=== PATIENT | male | born 1985 | race African-American/Black ===

== ENCOUNTER 2019-05-25 12:10 | Emergency (ER) | payer MEDICARE ==
[~2019-05-25] VITALS: Ht 170.2 cm; Wt 81.6 kg
[2019-05-25 13:38] LABS: BASO % 1 % (0-3); EOS % 0 % (0-3); HEMATOCRIT 45.9 % (39.0-53.0); HEMOGLOBIN 15.4 g/dL (13.0-17.5); LYMPH # 1.3 x10^3/uL (1.0-4.8); LYMPH % 19 % (24-48); MEAN CORPUSCULAR HEMOGLOBIN 24 pg (25-35); MEAN CORPUSCULAR HGB CONC 33 g/dL (31-37); MEAN CORPUSCULAR VOLUME 73 fL (79-100); MONO # 0.7 x10^3/uL (0.0-1.1); MONO % 10 % (0-9); NEUT # 4.9 x10^3/uL (1.8-7.7); NEUT % 71 % (31-73); PLATELET COUNT 303 x10^3/uL (140-400); RED BLOOD COUNT 6.31 x10^6/uL (4.30-5.70)
[2019-05-25 13:41] LABS: BILIRUBIN,URINE SMALL (NEG); CLARITY,URINE CLEAR; COLOR,URINE AMBER; NITRITE,URINE NEGATIVE (NEG); PROTEIN,URINE 30 mg/dL (NEG-TRACE)
[2019-05-25] MEDS: ONDANSETRON PF 4 MG/2 ML VIAL. IM ONE (13:42)
[2019-05-25] MEDS: IV NORMAL SALINE 1000ML BAG 1,000 ML IV SCH (13:42)
[2019-05-25] MEDS: ONDANSETRON PF 4 MG/2 ML VIAL. IV ONE (13:44)
[2019-05-25 13:46] LABS: BARBITURATES NEG (NEG); BENZODIAZEPINES NEG (NEG); CANNABINOIDS POS (NEG); COCAINE NEG (NEG); METHADONE NEG (NEG); OPIATES NEG (NEG); PHENCYCLIDINE NEG (NEG)
[2019-05-25 13:47] LABS: AMPHETAMINE/METHAMPHETAMINE NEG (NEG)
[2019-05-25 13:47] LABS: CALCIUM 9.6 mg/dL (8.5-10.1); CREATININE 1.2 mg/dL (0.7-1.3); GFR 84.4; POTASSIUM 3.3 mmol/L (3.5-5.1)
[2019-05-25 13:48] LABS: BACTERIA,URINE 0 /HPF (0-FEW); RBC,URINE 0 /HPF (0-2); WBC,URINE OCC /HPF (0-4)
[2019-05-25 13:52] LABS: ALBUMIN 4.6 g/dL (3.4-5.0); ALBUMIN/GLOBULIN RATIO 1.1 (1.0-1.7); TOTAL BILIRUBIN 1.6 mg/dL (0.2-1.0); TOTAL PROTEIN 8.8 g/dL (6.4-8.2)
[2019-05-25] MEDS: fentaNYL PF VIAL 100 MCG/2 ML VIAL IV ONE ×2 (14:00→15:31)
[2019-05-25] MEDS: IOHEXOL 300 MG/ML 100ML VIAL. IV ONE (14:20)
[2019-05-25] MEDS ORDERED: CONTRAST GIVEN. MC PRN (14:30)
--- NOTE | 2019-05-25 15:01 | RAD ---
Examination: CT ABD PELV W/ IV CONTRST ONLY History: Abdominal pain Comparison/Correlation: None Findings: Axial images of the abdomen and pelvis were obtained following IV contrast. Sagittal and coronal reformatted images were provided. Visualized lung bases are clear. Small hiatal hernia is present. Liver, spleen, pancreas, adrenal glands, and kidneys are unremarkable. Gallbladder fossa is unremarkable. There is no bowel obstruction. Diverticulosis of the colon is minimal. Appendix is normal. No enlarged abdominal or pelvic lymph nodes. Urinary bladder is unremarkable. Right femoral intramedullary talat is partially seen. Impression: Small hiatal hernia. Minimal diverticulosis of the colon. No acute inflammatory process or suspicious mass lesion. PQRS Compliance Statement: One or more of the following individualized dose reduction techniques were utilized for this examination: 1. Automated exposure control 2. Adjustment of the mA and/or kV according to patient size 3. Use of iterative reconstruction technique Electronically signed by: Brayden Jules MD (05/25/2019 2:58 PM) [facility]
--- NOTE | 2019-05-25 15:15 | PHYS DOC ---
Past Medical History Past Medical History: Asthma Past Surgical History: No Surgical History Additional Information: 09/15 PK Alcohol Use: None Drug Use: None Adult General Chief Complaint Chief Complaint: NAUSEA/VOMITING/DIARRHA HPI HPI Patient is a 34 year old Male who presents with started vomiting on Thursday and has nothing to eat for the last 3 days. Patient states he hasn't had a bowel movement since Thursday. Patient states is normal for him. Patient states his abdomen is starting all over. He rates his pain a 10 out 10. His only history is asthma. Patient states he has not taken any medications to help his symptoms. Review of Systems Review of Systems Constitutional: Denies fever or chills [] GI: abdominal pain, nausea, vomiting, denies bloody stools or diarrhea [] All other systems were reviewed and found to be within normal limits, except as documented in this note. Current Medications Current Medications Current Medications Medications (Trade) Dose Ordered Sig/Haylie Start Time Stop Time Status Last Admin Dose Admin Famotidine (Pepcid Vial) 20 mg 1X ONCE 05/25/19 15:30 05/25/19 15:31 DC 05/25/19 15:31 20 MG Fentanyl Citrate (Fentanyl 2ml Vial) 50 mcg 1X ONCE 05/25/19 15:30 05/25/19 15:31 DC 05/25/19 15:31 50 MCG Info (CONTRAST GIVEN -- Rx MONITORING) 1 each PRN DAILY PRN 05/25/19 14:30 05/27/19 14:29 Iohexol (Omnipaque 300 Mg/ml) 75 ml 1X ONCE 05/25/19 14:15 05/25/19 14:18 DC 05/25/19 14:20 75 ML Ondansetron HCl (Zofran) 4 mg 1X ONCE 05/25/19 13:45 05/25/19 13:49 DC 05/25/19 13:44 4 MG Potassium Chloride (Klor-Con) 20 meq 1X ONCE 05/25/19 15:30 05/25/19 15:31 DC 05/25/19 15:39 20 MEQ Prochlorperazine Edisylate (Compazine) 10 mg 1X ONCE 05/25/19 15:30 05/25/19 15:31 DC 05/25/19 15:31 10 MG Sodium Chloride 1,000 ml @ 1,000 mls/hr 1X ONCE 05/25/19 15:30 05/25/19 16:29 05/25/19 15:39 1,000 MLS/HR Allergies Allergies Allergies Coded Allergies Type Severity Reaction Last Updated Verified No Known Drug Allergies 05/25/19 No Physical Exam Physical Exam Constitutional: Well developed, well nourished, no acute distress, non-toxic a ppearance. [] Cardiovascular:Heart rate regular rhythm, no murmur [] Lungs & Thorax: Bilateral breath sounds clear to auscultation [] Abdomen: Bowel sounds normal, soft, generalized tenderness, no masses, no pulsatile masses. [] Skin: Warm, dry, no erythema, no rash. [] Back: No tenderness, no CVA tenderness. [] Neurologic: Alert and oriented X 3, normal motor function, normal sensory function, no focal deficits noted. [] Psychologic: Affect normal, judgement normal, mood normal. [] Current Patient Data Vital Signs Vital Signs Date Time Temp Pulse Resp B/P (MAP) Pulse Ox O2 Delivery O2 Flow Rate FiO2 05/25/19 15:31 16 05/25/19 13:03 98.6 57 169/100 (123) 100 Room Air 98.6 Lab Values Laboratory Tests Test 05/25/19 13:15 05/25/19 13:20 Urine Collection Type Unknown Urine Color Marylu Urine Clarity Clear Urine pH 6.0 Urine Specific [place] >=1.030 Urine Protein 30 mg/dL (NEG-TRACE) Urine Glucose (UA) Negative mg/dL (NEG) Urine Ketones (Stick) >=80 mg/dL (NEG) Urine Blood Negative (NEG) Urine Nitrite Negative (NEG) Urine Bilirubin Small (NEG) Urine Urobilinogen Dipstick 1.0 mg/dL (0.2 mg/dL) Urine Leukocyte Esterase Negative (NEG) Urine RBC 0 /HPF (0-2) Urine WBC Occ /HPF (0-4) Urine Bacteria 0 /HPF (0-FEW) Urine Mucus Marked /LPF Urine Opiates Screen Neg (NEG) Urine Methadone Screen Neg (NEG) Urine Barbiturates Neg (NEG) Urine Phencyclidine Screen Neg (NEG) Urine Amphetamine/Methamphetamine Neg (NEG) Urine Benzodiazepines Screen Neg (NEG) Urine Cocaine Screen Neg (NEG) Urine Cannabinoids Screen Pos (NEG) Urine Ethyl Alcohol Neg (NEG) White Blood Count 7.0 x10^3/uL (4.0-11.0) Red Blood Count 6.31 x10^6/uL (4.30-5.70) H Hemoglobin 15.4 g/dL (13.0-17.5) Hematocrit 45.9 % (39.0-53.0) Mean Corpuscular Volume 73 fL (79-100) L Mean Corpuscular Hemoglobin 24 pg (25-35) L Mean Corpuscular Hemoglobin Concent 33 g/dL (31-37) Red Cell Distribution Width 14.0 % (11.5-14.5) Platelet Count 303 x10^3/uL (140-400) Neutrophils (%) (Auto) 71 % (31-73) Lymphocytes (%) (Auto) 19 % (24-48) L Monocytes (%) (Auto) 10 % (0-9) H Eosinophils (%) (Auto) 0 % (0-3) Basophils (%) (Auto) 1 % (0-3) Neutrophils # (Auto) 4.9 x10^3/uL (1.8-7.7) Lymphocytes # (Auto) 1.3 x10^3/uL (1.0-4.8) Monocytes # (Auto) 0.7 x10^3/uL (0.0-1.1) Eosinophils # (Auto) 0.0 x10^3/uL (0.0-0.7) Basophils # (Auto) 0.0 x10^3/uL (0.0-0.2) Sodium Level 140 mmol/L (136-145) Potassium Level 3.3 mmol/L (3.5-5.1) L Chloride Level 97 mmol/L (98-107) L Carbon Dioxide Level 27 mmol/L (21-32) Anion Gap 16 (6-14) H Blood Urea Nitrogen 27 mg/dL (8-26) H Creatinine 1.2 mg/dL (0.7-1.3) Estimated GFR (Cockcroft-Gault) 84.4 BUN/Creatinine Ratio 23 (6-20) H Glucose Level 101 mg/dL (70-99) H Calcium Level 9.6 mg/dL (8.5-10.1) Total Bilirubin 1.6 mg/dL (0.2-1.0) H Aspartate Amino Transferase (AST) 20 U/L (15-37) Alanine Aminotransferase (ALT) 47 U/L (16-63) Alkaline Phosphatase 99 U/L (46-116) Total Protein 8.8 g/dL (6.4-8.2) H Albumin 4.6 g/dL (3.4-5.0) Albumin/Globulin Ratio 1.1 (1.0-1.7) Lipase 53 U/L (73-393) L Laboratory Tests 05/25/19 13:20 Laboratory Tests 05/25/19 13:20 EKG EKG [] Radiology/Procedures Radiology/Procedures [] Impressions: [facility] [address] [place] [address] IMAGING REPORT Signed PATIENT: CAR STARKS ACCOUNT: [id number] : 1985 LOCATION: ER AGE: 34 SEX: M EXAM STATUS: REG ER ORD. PHYSICIAN: ALISHA GAYLE APRN REASON: abd pain PROCEDURE: CT ABD PELV W/ IV CONTRST ONLY Examination: CT ABD PELV W/ IV CONTRST ONLY History: Abdominal pain Comparison/Correlation: None Findings: Axial images of the abdomen and pelvis were obtained following IV contrast. Sagittal and coronal reformatted images were provided. Visualized lung bases are clear. Small hiatal hernia is present. Liver, spleen, pancreas, adrenal glands, and kidneys are unremarkable. Gallbladder fossa is unremarkable. There is no bowel obstruction. Diverticulosis of the colon is minimal. Appendix is normal. No enlarged abdominal or pelvic lymph nodes. Urinary bladder is unremarkable. Right femoral intramedullary talat is partially seen. Impression: Small hiatal hernia. Minimal diverticulosis of the colon. No acute inflammatory process or suspicious mass lesion. PQRS Compliance Statement: One or more of the following individualized dose reduction techniques were utilized for this examination: 1. Automated exposure control 2. Adjustment of the mA and/or kV according to patient size 3. Use of iterative reconstruction technique Electronically signed by: Brayden Miramontes MD (05/25/2019 2:58 PM) [facility] DICTATED and SIGNED BY: BRAYDEN MIRAMONTES MD DATE: 05/25/19 6112 Course & Med Decision Making Course & Med Decision Making Patient is a 34 year old Male who presents with started vomiting on Thursday and has nothing to eat for the last 3 days. Patient states he hasn't had a bowel movement since Thursday. Patient states is normal for him. Patient states his abdomen is starting all over. He rates his pain a 10 out 10. His only history is asthma. Patient states he has not taken any medications to help his symptoms. Patient denies any blood in his vomit or his stools recently. Abdomen is soft but generalized tenderness throughout all quadrants. Patient denies shortness of breath, chest pain, numbness or tingling, fevers, dysuria. No CVA tenderness. Lungs are clear to auscultation all lobes. Vital signs are within normal limits. Speaks in clear full sentences. Alert and oriented. Skin pink warm and dry. Mucous membranes are moist. PERRLA. Ambulatory with a steady gait. Urinalysis is not infected. CT scan shows a hiatal hernia. Patient is positive for marijuana use. Patient is educated on slowly advancing his diet. Patient is educated on medications prescribed and to follow up with GI or his primary care provider. Patient is feeling better after medications are given. Dragon Disclaimer Dragon Disclaimer This electronic medical record was generated, in whole or in part, using a voice recognition dictation system. Departure Departure Impression: Primary Impression: Nausea & vomiting Additional Impression: Marijuana use Disposition: 01 HOME, SELF-CARE Condition: STABLE Referrals: NO PCP (PCP) DONNA BUSTILLOS MD Patient Instructions: Diet for Gastroesophageal Reflux Disease, Adult, Hiatal Hernia, Nausea and Vomiting Additional Instructions: Slowly increasing her diet. Drink plenty of fluids. Take medications as prescribed. Follow-up with gastrointestinal doctor. Scripts Ondansetron (ONDANSETRON ODT) 4 Mg Tab.rapdis 1 TAB PO PRN Q6-8HRS, #16 TAB Prov: ALISHA GAYLE FIBER GLASS WORKER 05/25/19 Famotidine (PEPCID) 20 Mg Tablet 20 MG PO BID, #20 TAB Prov: ALISHA GAYLE FIBER GLASS WORKER 05/25/19 Problem Qualifiers Primary Impression: Nausea & vomiting Vomiting type: unspecified Vomiting Intractability: non-intractable Qualified Codes: R11.2 - Nausea with vomiting, unspecified ALISHA GAYLE FIBER GLASS WORKER May 25, 2019 15:15
[2019-05-25] MEDS ORDERED: ONDA4TAB12 PO (15:25)
[2019-05-25] MEDS ORDERED: FAMO-63 PO (15:25)
[2019-05-25] MEDS: PROCHLORPERAZINE 10 MG/2 ML VIAL. IV ONE (15:30)
[2019-05-25] MEDS: FAMOTIDINE 20 MG/2 ML VIAL IVP ONE (15:31)
[2019-05-25 15:35] VITALS: BP 150/90
[2019-05-25] MEDS: POTASSIUM CHLORIDE 20 MEQ TABLET.ER. PO ONE (15:39)
[2019-05-25] MEDS: IV NORMAL SALINE 1000ML BAG 1,000 ML IV ONE (15:39)
== END 2019-05-25 16:33 | disposition home or self-care (01) ==
LOC: ER 12:10
DX: F12.10 Cannabis abuse, uncomplicated (principal); R11.2 Nausea with vomiting, unspecified; R10.84 Generalized abdominal pain; F17.200 Nicotine dependence, unspecified, uncomplicated; J45.909 Unspecified asthma, uncomplicated
CPT/HCPCS: 36415; 74177; 80053; 80307; 81001; 83690; 85025; 96361; 96374; 96375; 96376; 99285; J0780; J2405; J3010; J3490; J7030; Q9967

== ENCOUNTER 2019-08-26 08:33 | Emergency (ER) | payer MEDICARE ==
[~2019-08-26] VITALS: Ht 170.2 cm; Wt 84.9 kg
[~2019-08-26 08:33] MED LIST: FAMO-63 PO; ONDA4TAB12 PO
[2019-08-26 08:41] VITALS: BP 146/91
[2019-08-26] MEDS ORDERED: OSELTAMIVIR 75 MG CAPSULE PO STA (08:49)
[2019-08-26] MEDS ORDERED: OSEL75CA PO (08:55)
--- NOTE | 2019-08-26 08:55 | PHYS DOC ---
Past Medical History Past Medical History: Asthma Past Surgical History: No Surgical History Alcohol Use: None Drug Use: None Adult General Chief Complaint Chief Complaint: FLU SYMPTOM HPI HPI Patient is a 34-year-old male who presents with complaint of fever, body aches and chills that started yesterday afternoon. Patient states that his had been in here on Thursday and was diagnosed with influenza. Patient states these been running a fever at home. Patient's temperature here in the emergency room is 101.3. He denies any nausea or vomiting. He rates the body aches as moderate pain.[] Review of Systems Review of Systems Constitutional: Positive fever and chills [] HENT: Positive congestion without sore throat [] Respiratory: Positive cough without shortness of breath [] Cardiovascular: No additional information not addressed in HPI [] GI: Denies abdominal pain, nausea, vomiting, bloody stools or diarrhea [] Musculoskeletal: Positive diffuse body aches/pain [] Integument: Denies rash or skin lesions [] Allergies Allergies Allergies Coded Allergies Type Severity Reaction Last Updated Verified No Known Drug Allergies 05/25/19 No Physical Exam Physical Exam Constitutional: Well developed, well nourished, no acute distress, non-toxic appearance. [] HENT: Normocephalic, atraumatic, bilateral external ears normal, oropharynx moist, no oral exudates, nose normal. [] Cardiovascular:Heart rate regular rhythm, no murmur [] Lungs & Thorax: Bilateral breath sounds clear to auscultation [] Skin: Warm, dry, no erythema, no rash. [] EKG EKG [] Radiology/Procedures Radiology/Procedures [] Course & Med Decision Making Course & Med Decision Making Pertinent Labs and Imaging studies reviewed. (See chart for details) [] Dragon Disclaimer Dragon Disclaimer This electronic medical record was generated, in whole or in part, using a voice recognition dictation system. Departure Departure Impression: Primary Impression: Influenza Disposition: 01 HOME, SELF-CARE Condition: STABLE Referrals: NO PCP (PCP) Patient Instructions: Form - Excuse from Work, School, or Physical Activity, Influenza, Adult Scripts Oseltamivir Phosphate (TAMIFLU) 75 Mg Capsule 1 CAP PO BID, #10 CAP Prov: ARMANDO WEBER Jr. DO 08/26/19 ARMANDO WEBER Jr. DO Aug 26, 2019 08:55
[2019-08-26] MEDS ORDERED: ACETAMINOPHEN 500 MG TABLET PO ONE (09:00)
== END 2019-08-26 09:01 | disposition home or self-care (01) ==
LOC: ER 08:33
DX: J11.1 Influenza due to unidentified influenza virus with other respiratory manifestations (principal); J45.909 Unspecified asthma, uncomplicated
CPT/HCPCS: 99283

== ENCOUNTER 2019-09-18 18:20 | Emergency (ER) | payer MEDICARE ==
[~2019-09-18] VITALS: Ht 170.2 cm; Wt 83.0 kg
[~2019-09-18 18:20] MED LIST changes: +OSEL75CA PO
[2019-09-18 18:35] VITALS: BP 137/92
[2019-09-18] MEDS ORDERED: NAPR-514 PO (19:19)
[2019-09-18] MEDS ORDERED: CYCL10TA2 PO (19:19)
[2019-09-18] MEDS ORDERED: PRED50TA PO (19:19)
--- NOTE | 2019-09-18 19:20 | PHYS DOC ---
Past Medical History Past Medical History: Asthma Past Surgical History: No Surgical History Alcohol Use: None Drug Use: None Adult General Chief Complaint Chief Complaint: HEADACHE HPI HPI Patient is a 34 year old male who presents with 7/10 throbbing intermittent headache that began last night. Patient denies any exacerbation or relieving factors to his headache. Denies any nausea vomiting. He reports he was supposed to go to work today but missed work because of the head and would like a note for work for 2 days. Review of Systems Review of Systems Constitutional: Denies fever or chills [] Eyes: Denies change in visual acuity, redness, or eye pain [] HENT: Denies nasal congestion or sore throat [] Respiratory: Denies cough or shortness of breath [] Cardiovascular: No additional information not addressed in HPI [] GI: Denies abdominal pain, nausea, vomiting, bloody stools or diarrhea [] : Denies dysuria or hematuria [] Musculoskeletal: Denies back pain or joint pain [] Integument: Denies rash or skin lesions [] Neurologic: Reports headache, denies focal weakness or sensory changes [] All other systems were reviewed and found to be within normal limits, except as documented in this note. Current Medications Current Medications Current Medications Medications (Trade) Dose Ordered Sig/Haylie Start Time Stop Time Status Last Admin Dose Admin Ondansetron HCl (Zofran Odt) 4 mg 1X ONCE 09/18/19 19:00 09/18/19 19:11 DC Prednisone (Prednisone) 60 mg 1X ONCE 09/18/19 19:00 09/18/19 19:11 DC Allergies Allergies Allergies Coded Allergies Type Severity Reaction Last Updated Verified No Known Drug Allergies 05/25/19 No Physical Exam Physical Exam Constitutional: Well developed, well nourished, no acute distress, non-toxic appearance. [] HENT: Normocephalic, atraumatic, bilateral external ears normal, oropharynx moist, no oral exudates, nose normal. [] Eyes: PERRLA, EOMI, conjunctiva normal, no discharge. [] Neck: Normal range of motion, no tenderness, supple, no stridor. [] Cardiovascular:Heart rate regular rhythm, no murmur [] Lungs & Thorax: Bilateral breath sounds clear to auscultation [] Abdomen: Bowel sounds normal, soft, no tenderness, no masses, no pulsatile masses. [] Skin: Warm, dry, no erythema, no rash. [] Back: No tenderness, no CVA tenderness. [] Extremities: No tenderness, no cyanosis, no clubbing, ROM intact, no edema. [] Neurologic: Alert and oriented X 3, normal motor function, normal sensory function, no focal deficits noted. Cranial nerves II through XII intact Psychologic: Affect normal, judgement normal, mood normal. [] Current Patient Data Vital Signs Vital Signs Date Time Temp Pulse Resp B/P (MAP) Pulse Ox O2 Delivery O2 Flow Rate FiO2 09/18/19 18:35 98.6 90 12 137/92 (107) 98 Room Air 98.6 EKG EKG [] Radiology/Procedures Radiology/Procedures [] Course & Med Decision Making Course & Med Decision Making Pertinent Labs and Imaging studies reviewed. (See chart for details) This is a 34-year-old male patient presenting to the ED today with intermittent episodes of a frontal headache that began yesterday. Patient is neurologically intact. He missed work and would like a note. Note for work provided. Instructed to follow-up with his own PCP. Blood pressure was noted at 137/92, no history of hypertension, encouraged to follow up with the PCP on blood pressure monitor. Dragon Disclaimer Dragon Disclaimer This electronic medical record was generated, in whole or in part, using a voice recognition dictation system. Departure Departure Impression: Primary Impression: Headache Disposition: 01 HOME, SELF-CARE Condition: STABLE Referrals: NO PCP (PCP) follow up with your doctor in 1-2 weeks Patient Instructions: Headache, FAQs Additional Instructions: You were evaluated in the emergency room for headache. Take the prescribed medicine as needed for pain. Please follow-up with your primary care doctor in the next 1-2 weeks. Off note your blood pressure was slightly up at 137/92, blood pressure is less than 120/80 please follow up with your doctor for blood pressure monitoring Scripts Cyclobenzaprine Hcl (CYCLOBENZAPRINE HCL) 10 Mg Tablet 1 TAB PO TID, #30 TAB Prov: MUTUNGA,DIOGO TURBOGENERATOR OPERATOR 09/18/20 Naproxen (NAPROXEN) 500 Mg Tablet 1 TAB PO BID for pain, #20 TAB 0 Refills Prov: MUTUNGA,DIOGO TURBOGENERATOR OPERATOR 09/18/20 Prednisone (PREDNISONE) 50 Mg Tablet 1 TAB PO DAILY, #5 TAB Prov: MUTUNGA,DIOGO TURBOGENERATOR OPERATOR 09/18/19 Problem Qualifiers Primary Impression: Headache Headache type: unspecified Headache chronicity pattern: acute headache Intractability: not intractable Qualified Codes: R51 - Headache DIOGO NEIL APRN Sep 18, 2019 19:20
[2019-09-18] MEDS: predniSONE 20 MG TABLET PO ONE (19:28)
[2019-09-18] MEDS: ONDANSETRON ODT 4 MG TAB.RAPDIS. PO ONE (19:28)
== END 2019-09-18 19:38 | disposition home or self-care (01) ==
LOC: ER 18:20
DX: R51 Headache (principal); J45.909 Unspecified asthma, uncomplicated
CPT/HCPCS: 99283; J7512; Q0162

== ENCOUNTER 2019-11-01 09:26 | Emergency (ER) | payer MEDICARE ==
[~2019-11-01] VITALS: Ht 170.2 cm; Wt 90.0 kg
[~2019-11-01 09:26] MED LIST changes: +CYCL10TA2 PO; +NAPR-514 PO; +PRED50TA PO
[2019-11-01 09:52] VITALS: BP 133/73
[2019-11-01] MEDS ORDERED: IV NORMAL SALINE 1000ML BAG 1,000 ML IV ONE (10:00)
[2019-11-01] MEDS ORDERED: FAMOTIDINE 20 MG/2 ML VIAL IVP ONE (10:00)
[2019-11-01] MEDS ORDERED: ONDANSETRON PF 4 MG/2 ML VIAL. IVP ONE (10:00)
--- NOTE | 2019-11-01 10:03 | PHYS DOC ---
Past Medical History Past Medical History: Asthma (DIOGO NEIL APRN) Past Surgical History: No Surgical History (DIOGO ENIL APRN) Smoking Status: Current Every Day Smoker Alcohol Use: None Drug Use: None (DIOGO NEIL APRN) Adult General Chief Complaint Chief Complaint: ABDOMINAL PAIN HPI HPI Patient is a 34 year old male patient who presents to the ED today complaining of 7 out of 10 abdominal pain mostly around his umbilicus that began on Thursday this week. Patient also complaining of nausea and vomiting as well as dark stools. Denies any fever. (DIOGO NEIL APRN) Review of Systems Review of Systems Constitutional: Denies fever or chills [] Eyes: Denies change in visual acuity, redness, or eye pain [] HENT: Denies nasal congestion or sore throat [] Respiratory: Denies cough or shortness of breath [] Cardiovascular: No additional information not addressed in HPI [] GI: Reports abdominal pain, nausea vomiting, denies bloody stools or diarrhea [] : Denies dysuria or hematuria [] Musculoskeletal: Denies back pain or joint pain [] Integument: Denies rash or skin lesions [] Neurologic: Denies headache, focal weakness or sensory changes [] All other systems were reviewed and found to be within normal limits, except as documented in this note. (DIOGO NEIL APRN) Current Medications Current Medications Current Medications Medications (Trade) Dose Ordered Sig/Haylie Start Time Stop Time Status Last Admin Dose Admin Famotidine (Pepcid Vial) 20 mg 1X ONCE 11/01/19 10:00 11/01/19 10:02 DC Ondansetron HCl (Zofran) 4 mg 1X ONCE 11/01/19 10:00 11/01/19 10:02 DC Sodium Chloride 1,000 ml @ 1,000 mls/hr 1X ONCE 11/01/19 10:00 11/01/19 10:13 DC (MARTHA MCNULTY DO) Allergies Allergies Allergies Coded Allergies Type Severity Reaction Last Updated Verified No Known Drug Allergies 05/25/19 No (MARTHA MCNULTY DO) Physical Exam Physical Exam Constitutional: Well developed, well nourished, no acute distress, non-toxic appearance. [] HENT: Normocephalic, atraumatic, bilateral external ears normal, oropharynx moist, no oral exudates, nose normal. [] Eyes: PERRLA, EOMI, conjunctiva normal, no discharge. [] Neck: Normal range of motion, no tenderness, supple, no stridor. [] Cardiovascular:Heart rate regular rhythm, no murmur [] Lungs & Thorax: Bilateral breath sounds clear to auscultation [] Abdomen: Bowel sounds normal, soft, diffuse tenderness, negative Atkins sign, negative psoas and obturator signs, no masses, no pulsatile masses. [] Skin: Warm, dry, no erythema, no rash. [] Back: No tenderness, no CVA tenderness. [] Extremities: No tenderness, no cyanosis, no clubbing, ROM intact, no edema. [] Neurologic: Alert and oriented X 3, normal motor function, normal sensory function, no focal deficits noted. [] Psychologic: Affect normal, judgement normal, mood normal. [] (DIOGO NEIL APRN) Current Patient Data Vital Signs Vital Signs Date Time Temp Pulse Resp B/P (MAP) Pulse Ox O2 Delivery O2 Flow Rate FiO2 11/01/19 09:52 98.6 77 16 133/73 (93) 97 Room Air 98.6 (MARTHA MCNULTY DO) EKG EKG [] (DIOGO NEIL APRN) Radiology/Procedures Radiology/Procedures [] (DIOGO NEIL APRN) Course & Med Decision Making Course & Med Decision Making Pertinent Labs and Imaging studies reviewed. (See chart for details) This is a 34-year-old male patient presenting to the ED today with nausea vomiting abdominal pain and dark stool symptoms since Thursday. 1008 patient eloped from the Ed. (DIOGO NEIL APRN) Dragon Disclaimer Dragon Disclaimer This electronic medical record was generated, in whole or in part, using a voice recognition dictation system. (DIOGO NEIL APRN) Departure Departure Impression: Primary Impression: Nausea & vomiting Additional Impression: Abdominal pain Disposition: AGAINST MEDICAL ADVICE Condition: STABLE Referrals: NO PCP (PCP) Attending Signature Attending Signature I have reviewed the PA/SENIOR INFORMATION SYSTEMS ARCHITECT's note and plan of care. I was available for consultation as needed during the patient's visit in the emergency department. I agree with the clinical impression, plan, and disposition. (MARTHA MCNULTY DO) Problem Qualifiers Primary Impression: Nausea & vomiting Vomiting type: unspecified Vomiting Intractability: non-intractable Qualified Codes: R11.2 - Nausea with vomiting, unspecified Additional Impression: Abdominal pain Abdominal location: generalized Qualified Codes: R10.84 - Generalized abdominal pain DIOGO NEIL APRN Nov 01, 2019 10:03 MARTHA MCNULTY DO Nov 02, 2019 21:33
== END 2019-11-01 10:07 | disposition left against medical advice (07) ==
LOC: ER 09:26
DX: R11.2 Nausea with vomiting, unspecified (principal); R10.84 Generalized abdominal pain; J45.909 Unspecified asthma, uncomplicated; F17.200 Nicotine dependence, unspecified, uncomplicated
CPT/HCPCS: 99283

== ENCOUNTER 2020-04-27 08:30 | Observation (INO) | payer MEDICARE ==
[~2020-04-27] VITALS: Ht 170.2 cm; Wt 82.0 kg
[2020-04-27 08:50] LABS: BILIRUBIN,URINE SMALL (NEG); CLARITY,URINE CLOUDY; COLOR,URINE AMBER; NITRITE,URINE NEGATIVE (NEG); PH,URINE 6.5 (<5.0-8.0); PROTEIN,URINE 30 mg/dL (NEG-TRACE); UROBILINOGEN,URINE 0.2 mg/dL (0.2 mg/dL)
[2020-04-27 09:05] LABS: BACTERIA,URINE FEW /HPF (0-FEW); RBC,URINE 0 /HPF (0-2)
--- NOTE | 2020-04-27 09:05 | PHYS DOC ---
Past Medical History Past Medical History: Asthma, Other Additional Past Medical Histor: HERNIA Past Surgical History: No Surgical History Smoking Status: Current Every Day Smoker Alcohol Use: Occasionally Drug Use: None General Adult EDM: Chief Complaint: NAUSEA/VOMITING/DIARRHA HPI: HPI: Patient is a 35-year-old male who presents to the emergency room complaining of abdominal pain, nausea, vomiting. History is very limited from the patient as he is agitated. He states that he started feeling bad yesterday morning. He states he is unable to keep anything down. Is never had anything like this previously. He states he is thirsty but not hungry. He is never had surgery on his abdomen before. He denies any diarrhea, fever, chills, sweats, trauma, chest pain, shortness of breath. Review of Systems: Review of Systems: General: Denies fever, chills, sweats, fatigue Eyes: Denies drainage, blurred vision, eye redness HENT: Denies rhinorrhea, sore throat, earache Respiratory: Denies cough, shortness of breath, wheezing Cardiac: Denies edema, palpitations, chest pain GI: Reports nausea, vomiting, abdominal pain MSK: Denies neck pain, back pain Skin: Denies rash, jaundice Neuro: Denies headache, dizziness Psychiatric: Denies SI/HI Heart Score: Risk Factors: Risk Factors: DM, Current or recent (<one month) smoker, HTN, HLP, family history of CAD, obesity. Risk Scores: Score 0 - 3: 2.5% MACE over next 6 weeks - Discharge Home Score 4 - 6: 20.3% MACE over next 6 weeks - Admit for Clinical Observation Score 7 - 10: 72.7% MACE over next 6 weeks - Early Invasive Strategies Allergies: Allergies: Allergies Coded Allergies Type Severity Reaction Last Updated Verified No Known Drug Allergies 05/25/19 No Physical Exam: PE: General: Awake, alert, NAD. Well Nourished, well hydrated. Cooperative HEENT: Atraumatic, EOMI, PERRL, airway patent, moist oral mucosa Neck: Supple, trachea midline Respiratory: CTA bilaterally, normal effort, no wheezing/crackles CV: RRR, no murmur, cap refill <2 GI: Soft, diffuse tenderness, nondistended MSK: No obvious deformities Skin: Warm, dry, intact Neuro: A&O x3, speech NL, sensory and motor grossly intact, no focal deficits Psych: Agitated, not suicidal or homicidal Current Patient Data: Vital Signs: Vital Signs Date Time Temp Pulse Resp B/P (MAP) Pulse Ox O2 Delivery O2 Flow Rate FiO2 04/27/20 08:37 98.3 52 16 161/94 (116) 100 Room Air 98.3 EKG: EKG: [] Radiology/Procedures: Radiology/Procedures: [] Course & Med Decision Making: Course & Med Decision Making Pertinent Labs and Imaging studies reviewed. (See chart for details) Patient is a 35-year-old male who presents to the emergency room complaining of abdominal pain with vomiting for the last 36 hours. History and exam are limited due to patient's agitation and uncooperativeness. He is upset about not being able to eat or drink anything here in the emergency room. We will keep him n.p.o. at this time in case he has a surgical abdomen. Abdominal work-up was ordered including CBC, BMP, LFTs, lipase, UA, CT abdomen pelvis. Differential diagnosis includes appendicitis, colitis, cyclic vomiting, gastroenteritis, bowel obstruction. CT shows small bowel obstruction with possible closed loop obstruction. I have discussed this with the surgeon Dr. Machado. NG was placed. Work up was reviewed and was remarkable for small bowel obstruction. At this time, patient would benefit from further work up and management. Patient is not stable for discharge at this time. Results, vitals, interventions, and plan was discussed with the patient. Patient was given opportunity to ask any questions and are in agreement with plan for admission. Patient was discussed with admitting physician and bridge admission orders were placed. Further care will be managed by inpatient team. Zeny Disclaimer: Dragon Disclaimer: This electronic medical record was generated, in whole or in part, using a voice recognition dictation system. Departure Departure Impression: Primary Impression: Small bowel obstruction Additional Impression: Marijuana use Disposition: ADMITTED INPATIENT Condition: IMPROVED Referrals: NO PCP (PCP) Justicifation of Admission Dx: Justifications for Admission: Justification of Admission Dx: Yes BERNIE ELLER MD Apr 27, 2020 09:05
[2020-04-27] MEDS ORDERED: CONTRAST GIVEN. MC PRN (09:15)
[2020-04-27] MEDS ORDERED: IOHEXOL 240 MG/ML 50ML VIAL. PO ONE (09:15)
[2020-04-27] MEDS ORDERED: IOHEXOL 300 MG/ML 100ML VIAL. IV ONE (09:15)
[2020-04-27] MEDS ORDERED: ONDANSETRON PF 4 MG/2 ML VIAL. IVP ONE ×2 (09:15→10:15)
[2020-04-27 09:16] LABS: BASO # 0.1 x10^3/uL (0.0-0.2); BASO % 1 % (0-3); EOS % 0 % (0-3); HEMOGLOBIN 13.9 g/dL (13.0-17.5); LYMPH # 1.4 x10^3/uL (1.0-4.8); LYMPH % 17 % (24-48); MEAN CORPUSCULAR HEMOGLOBIN 24 pg (25-35); MEAN CORPUSCULAR HGB CONC 33 g/dL (31-37); MEAN CORPUSCULAR VOLUME 74 fL (79-100); MONO # 0.6 x10^3/uL (0.0-1.1); MONO % 8 % (0-9); NEUT # 6.3 x10^3/uL (1.8-7.7); NEUT % 75 % (31-73); PLATELET COUNT 309 x10^3/uL (140-400); RED CELL DISTRIBUTION WIDTH 14.5 % (11.5-14.5); WHITE BLOOD COUNT 8.4 x10^3/uL (4.0-11.0)
[2020-04-27 09:26] LABS: CALCIUM 9.3 mg/dL (8.5-10.1); GFR 103.5; POTASSIUM 3.5 mmol/L (3.5-5.1)
[2020-04-27 09:31] LABS: ALBUMIN 4.1 g/dL (3.4-5.0); TOTAL BILIRUBIN 1.4 mg/dL (0.2-1.0); TOTAL PROTEIN 8.1 g/dL (6.4-8.2)
[2020-04-27] MEDS ORDERED: IV NORMAL SALINE 1000ML BAG 1,000 ML IV ONE (10:15)
[2020-04-27] MEDS ORDERED: FAMOTIDINE 20 MG/2 ML VIAL IVP ONE (10:45)
--- NOTE | 2020-04-27 10:59 | RAD ---
EXAM: CT Abdomen and Pelvis with IV contrast INDICATION: Reason: abd pain, N/V / Spl. Instructions: OMNI 300 INJ 75 MLS OMNI 240 30 MLS / History: TECHNIQUE: Multi-detector row CT images were acquired from the lung bases through the abdomen and pelvis with the use of IV contrast. Sagittal and coronal images were acquired from the transaxial data. All CT scans performed at this facility utilize dose optimization techniques as appropriate to the exam, including the following: Automated exposure control and adjustment of the mA and/or KV according to patient size (this includes techniques or standardized protocols for targeted exams where dose is indication/reason for exam). IV CONTRAST: Administered ORAL CONTRAST: Administered COMPARISON: Abdomen pelvis CT with IV contrast 05/25/2019 FINDINGS: LOWER CHEST: Small hiatal hernia LIVER: Unremarkable BILIARY SYSTEM: Gallbladder is unremarkable. Bile ducts are not dilated. PANCREAS: Unremarkable SPLEEN: Unremarkable ADRENALS: Unremarkable KIDNEYS & URETERS: Unremarkable BLADDER: Unremarkable REPRODUCTIVE ORGANS: Unremarkable GASTROINTESTINAL: Stomach is unremarkable besides a small hiatal hernia. Small bowel is only partially opacified by enteric contrast. In the mid upper abdomen, an opacified small bowel loop is narrowed and appears to continue across the mesentery into unopacified small bowel loops, some of which more distally are mildly distended . The terminal ileum is normal in caliber. The large bowel shows diffuse spasm. There are scattered colonic diverticuli most conspicuous at the ascending colon and cecum. MESENTERY/PERITONEUM/RETROPERITONEUM: Unremarkable VASCULAR: Unremarkable LYMPH NODES: No adenopathy OSSEOUS & SOFT TISSUES: Unremarkable IMPRESSION: 1. Findings suggest a small bowel obstruction. Given the distention of nonopacified small bowel loops and collapse of more distal small bowel loops, closed loop obstruction physiology is difficult to exclude. No mesenteric edema or other secondary findings suspicious for bowel ischemia. 2. Incidental ascending colonic diverticulosis without CT findings of acute diverticulitis, and diffuse colonic spasm without overt signs of colitis. Discussed with Dr. Jayda Urbina by telephone at 10:54 AM on 04/27/2020 Electronically signed by: Raymundo Wood MD (04/27/2020 10:56 AM) [id number]
[2020-04-27] MEDS ORDERED: LIDOCAINE 2% VISCOUS 15 ML SOLUTION. MM ONE (11:00)
[2020-04-27] MEDS ORDERED: MORPHINE SULFATE 10 MG/ML VIAL. IV ONE ×2 (11:00→12:15)
--- NOTE | 2020-04-27 12:02 | RAD ---
KUB, KUB, KUB History: Reason: NG placement / Spl. Instructions: / History: Technique: 3 views of the abdomen obtained during enteric tube placement. Comparison: CT April 27, 2020 Findings: Initial radiograph of the abdomen demonstrates enteric tube within the midesophagus. Second image demonstrates enteric tube with tip projecting over the proximal stomach and side port in the distal esophagus. Final image demonstrates enteric tube with tip beyond the image in the distal stomach. No consolidation or pleural effusion. No pneumothorax. Contrast noted within the renal collecting system from recent CT. Oral contrast noted within partially imaged mid small bowel loops. Impression: 1. Serial images obtained during enteric tube placement with final positioning of enteric tube in the region of the distal stomach. Electronically signed by: Chester Vaca DO (04/27/2020 11:59 AM) [id number]
--- NOTE | 2020-04-27 12:07 | PDOC1 ---
History and Physical Date of Admission Date of Admission DATE: 04/27/20 TIME: 12:03 Identification/Chief Complaint Chief Complaint SEEN IN ER WITH PSBO presented to the emergency room complaining of abdominal pain, nausea, vomiting. He states that he started feeling bad yesterday morning. He states he is unable to keep anything down. Is never had anything like this previously. He denies any diarrhea, fever, chills, sweats, trauma, chest pain, shortness of breath. ADMITTED , MADE NPO Past Medical History Past Medical History Past Medical History Past Medical History: Asthma, Other Additional Past Medical Histor: HERNIA Past Surgical History: No Surgical History Smoking Status: Current Every Day Smoker Alcohol Use: Occasionally Drug Use: None FHX COPD, HTN Cardiovascular: HTN Pulmonary: Asthma Family History Family History: High Cholestrol, Hypertension Social History Smoke: <1 pack per day ALCOHOL: occassional Drugs: None, Marijuana Current Problem List Problem List Problems Medical Problems: (1) Marijuana use Status: Acute (2) Small bowel obstruction Status: Acute Current Medications Current Medications Current Medications Ondansetron HCl (Zofran) 4 mg 1X ONCE IVP Last administered on 04/27/20at 09:29; Start 04/27/20 at 09:15; Stop 04/27/20 at 09:16; Status DC Iohexol (Omnipaque 240 Mg/ml) 30 ml 1X ONCE PO Last administered on 04/27/20at 09:15; Start 04/27/20 at 09:15; Stop 04/27/20 at 09:16; Status DC Iohexol (Omnipaque 300 Mg/ml) 75 ml 1X ONCE IV Last administered on 04/27/20at 09:15; Start 04/27/20 at 09:15; Stop 04/27/20 at 09:16; Status DC Info (CONTRAST GIVEN -- Rx MONITORING) 1 each PRN DAILY PRN MC SEE COMMENTS; Start 04/27/20 at 09:15; Stop 04/29/20 at 09:14 Sodium Chloride 1,000 ml @ 1,000 mls/hr 1X ONCE IV Last administered on 04/27/20at 10:52; Start 04/27/20 at 10:15; Stop 04/27/20 at 11:14; Status DC Ondansetron HCl (Zofran) 4 mg 1X ONCE IVP Last administered on 04/27/20at 09:45; Start 04/27/20 at 10:15; Stop 04/27/20 at 10:18; Status DC Famotidine (Pepcid Vial) 20 mg 1X ONCE IVP Last administered on 04/27/20at 10:51; Start 04/27/20 at 10:45; Stop 04/27/20 at 10:46; Status DC Morphine Sulfate (Morphine Sulfate) 8 mg 1X ONCE IV Last administered on 04/27/20at 11:12; Start 04/27/20 at 11:00; Stop 04/27/20 at 11:02; Status DC Lidocaine HCl (Viscous Lidocaine) 15 ml 1X ONCE MM Last administered on 04/27/20at 11:11; Start 04/27/20 at 11:00; Stop 04/27/20 at 11:02; Status DC Active Scripts Active Cyclobenzaprine Hcl 10 Mg Tablet 1 Tab PO TID Naproxen 500 Mg Tablet 1 Tab PO BID Prednisone 50 Mg Tablet 1 Tab PO DAILY Tamiflu (Oseltamivir Phosphate) 75 Mg Capsule 1 Cap PO BID Ondansetron Odt (Ondansetron) 4 Mg Tab.rapdis 1 Tab PO PRN Q6-8HRS Pepcid (Famotidine) 20 Mg Tablet 20 Mg PO BID Allergies Allergies: Coded Allergies: No Known Drug Allergies (Unverified , 05/25/19) ROS Review of System Review of Systems: Review of Systems: General: Denies fever, chills, sweats, fatigue Eyes: Denies drainage, blurred vision, eye redness HENT: Denies rhinorrhea, sore throat, earache Respiratory: Denies cough, shortness of breath, wheezing Cardiac: Denies edema, palpitations, chest pain GI: Reports nausea, vomiting, abdominal pain MSK: Denies neck pain, back pain Skin: Denies rash, jaundice Neuro: Denies headache, dizziness 14 PT ROS OTHERWISE NEG General: No: Chills, Night Sweats, Fatigue, Malaise, Appetite, Other PSYCHOLOGICAL ROS: No: Anxiety, Behavioral Disorder, Concentration difficultie, Decreased libido, Depression, Disorientation, Hallucinations, Hostility, Irritablity, Memory difficulties, Mood Swings, Obsessive thoughts, Physical abuse, Sexual abuse, Sleep disturbances, Suicidal ideation, Other HEENT: No: Heacaches, Visual Changes, Hearing change, Nasal congestion, Nasal discharge, Oral lesions, Sinus pain, Sore Throat, Epistaxis, Sneezing, Snoring, Tinnitus, Vertigo, Vocal changes, Other ALLERGY AND IMMUNOLOGY: No: Hives, Insect Bite Sensitivity, Itchy/Watery Eyes, Nasal Congestion, Post Nasal Drip, Seasonal Allergies, Other Hematological and Lymphatic: No: Bleeding Problems, Blood Clots, Blood Transfusions, Brusing, Night Sweats, Pallor, Swollen Lymph Nodes, Other Respiratory: No: Cough, Hemoptysis, Orthopnea, Pleuritic Pain, Shortness of breath, SOB with excertion, Sputum Changes, Stridor, Tachypnea, Wheezing, Other Cardiovascular: No Chest Pain, No Palpitations, No Orthopnea, No Paroxysmal Noc. Dyspnea, No Edema, No Lt Headedness, No Other Gastrointestinal: Yes Nausea, Yes Vomiting Musculoskeletal: No Gait Disturbance, No Joint Pain, No Joint Stiffness, No Joint Swelling, No Muscle Pain, No Muscular Weakness, No Pain In:, No Swelling In:, No Other Neurological: No Behavorial Changes, No Bowel/Bladder ControlChng, No Confusion, No Dizziness, No Gait Disturbance, No Headaches, No Impaired Coord/balance, No Memory Loss, No Numbness/Tingling, No Seizures, No Speech Problems, No Tremors, No Visual Changes, No Weakness, No Other Vitals Vitals Vital Signs Date Time Temp Pulse Resp B/P (MAP) Pulse Ox O2 Delivery O2 Flow Rate FiO2 04/27/20 11:12 20 100 Room Air 04/27/20 10:34 46 169/97 (121) 04/27/20 08:37 98.3 98.3 Labs Labs Laboratory Tests Test 04/27/20 08:37 04/27/20 09:03 Urine Collection Type Void Urine Color Marylu Urine Clarity Cloudy Urine pH 6.5 (<5.0-8.0) Urine Specific [place] >=1.030 (1.000-1.030) Urine Protein 30 mg/dL (NEG-TRACE) Urine Glucose (UA) Negative mg/dL (NEG) Urine Ketones (Stick) 40 mg/dL (NEG) Urine Blood Negative (NEG) Urine Nitrite Negative (NEG) Urine Bilirubin Small (NEG) Urine Urobilinogen Dipstick 0.2 mg/dL (0.2 mg/dL) Urine Leukocyte Esterase Small (NEG) Urine RBC 0 /HPF (0-2) Urine WBC 11-20 /HPF (0-4) Urine Bacteria Few /HPF (0-FEW) Urine Mucus Marked /LPF White Blood Count 8.4 x10^3/uL (4.0-11.0) Red Blood Count 5.70 x10^6/uL (4.30-5.70) Hemoglobin 13.9 g/dL (13.0-17.5) Hematocrit 42.0 % (39.0-53.0) Mean Corpuscular Volume 74 fL (79-100) Mean Corpuscular Hemoglobin 24 pg (25-35) Mean Corpuscular Hemoglobin Concent 33 g/dL (31-37) Red Cell Distribution Width 14.5 % (11.5-14.5) Platelet Count 309 x10^3/uL (140-400) Neutrophils (%) (Auto) 75 % (31-73) Lymphocytes (%) (Auto) 17 % (24-48) Monocytes (%) (Auto) 8 % (0-9) Eosinophils (%) (Auto) 0 % (0-3) Basophils (%) (Auto) 1 % (0-3) Neutrophils # (Auto) 6.3 x10^3/uL (1.8-7.7) Lymphocytes # (Auto) 1.4 x10^3/uL (1.0-4.8) Monocytes # (Auto) 0.6 x10^3/uL (0.0-1.1) Eosinophils # (Auto) 0.0 x10^3/uL (0.0-0.7) Basophils # (Auto) 0.1 x10^3/uL (0.0-0.2) Sodium Level 138 mmol/L (136-145) Potassium Level 3.5 mmol/L (3.5-5.1) Chloride Level 99 mmol/L (98-107) Carbon Dioxide Level 25 mmol/L (21-32) Anion Gap 14 (6-14) Blood Urea Nitrogen 22 mg/dL (8-26) Creatinine 1.0 mg/dL (0.7-1.3) Estimated GFR (Cockcroft-Gault) 103.5 BUN/Creatinine Ratio 22 (6-20) Glucose Level 128 mg/dL (70-99) Calcium Level 9.3 mg/dL (8.5-10.1) Total Bilirubin 1.4 mg/dL (0.2-1.0) Aspartate Amino Transf (AST/SGOT) 19 U/L (15-37) Alanine Aminotransferase (ALT/SGPT) 46 U/L (16-63) Alkaline Phosphatase 92 U/L (46-116) Total Protein 8.1 g/dL (6.4-8.2) Albumin 4.1 g/dL (3.4-5.0) Albumin/Globulin Ratio 1.0 (1.0-1.7) Lipase 76 U/L (73-393) Laboratory Tests Test 04/27/20 08:37 04/27/20 09:03 Urine Collection Type Void Urine Color Marylu Urine Clarity Cloudy Urine pH 6.5 (<5.0-8.0) Urine Specific [place] >=1.030 (1.000-1.030) Urine Protein 30 mg/dL (NEG-TRACE) Urine Glucose (UA) Negative mg/dL (NEG) Urine Ketones (Stick) 40 mg/dL (NEG) Urine Blood Negative (NEG) Urine Nitrite Negative (NEG) Urine Bilirubin Small (NEG) Urine Urobilinogen Dipstick 0.2 mg/dL (0.2 mg/dL) Urine Leukocyte Esterase Small (NEG) Urine RBC 0 /HPF (0-2) Urine WBC 11-20 /HPF (0-4) Urine Bacteria Few /HPF (0-FEW) Urine Mucus Marked /LPF White Blood Count 8.4 x10^3/uL (4.0-11.0) Red Blood Count 5.70 x10^6/uL (4.30-5.70) Hemoglobin 13.9 g/dL (13.0-17.5) Hematocrit 42.0 % (39.0-53.0) Mean Corpuscular Volume 74 fL (79-100) Mean Corpuscular Hemoglobin 24 pg (25-35) Mean Corpuscular Hemoglobin Concent 33 g/dL (31-37) Red Cell Distribution Width 14.5 % (11.5-14.5) Platelet Count 309 x10^3/uL (140-400) Neutrophils (%) (Auto) 75 % (31-73) Lymphocytes (%) (Auto) 17 % (24-48) Monocytes (%) (Auto) 8 % (0-9) Eosinophils (%) (Auto) 0 % (0-3) Basophils (%) (Auto) 1 % (0-3) Neutrophils # (Auto) 6.3 x10^3/uL (1.8-7.7) Lymphocytes # (Auto) 1.4 x10^3/uL (1.0-4.8) Monocytes # (Auto) 0.6 x10^3/uL (0.0-1.1) Eosinophils # (Auto) 0.0 x10^3/uL (0.0-0.7) Basophils # (Auto) 0.1 x10^3/uL (0.0-0.2) Sodium Level 138 mmol/L (136-145) Potassium Level 3.5 mmol/L (3.5-5.1) Chloride Level 99 mmol/L (98-107) Carbon Dioxide Level 25 mmol/L (21-32) Anion Gap 14 (6-14) Blood Urea Nitrogen 22 mg/dL (8-26) Creatinine 1.0 mg/dL (0.7-1.3) Estimated GFR (Cockcroft-Gault) 103.5 BUN/Creatinine Ratio 22 (6-20) Glucose Level 128 mg/dL (70-99) Calcium Level 9.3 mg/dL (8.5-10.1) Total Bilirubin 1.4 mg/dL (0.2-1.0) Aspartate Amino Transf (AST/SGOT) 19 U/L (15-37) Alanine Aminotransferase (ALT/SGPT) 46 U/L (16-63) Alkaline Phosphatase 92 U/L (46-116) Total Protein 8.1 g/dL (6.4-8.2) Albumin 4.1 g/dL (3.4-5.0) Albumin/Globulin Ratio 1.0 (1.0-1.7) Lipase 76 U/L (73-393) Images Images PATIENT: CAR STARKS ACCOUNT: [id number] : 1985 LOCATION: ER AGE: 35 SEX: M EXAM STATUS: REG ER ORD. PHYSICIAN: BERNIE URBINA MD REASON: abd pain, N/V PROCEDURE: CT ABD PELV W/ORAL&IV CONTRAST EXAM: CT Abdomen and Pelvis with IV contrast INDICATION: Reason: abd pain, N/V / Spl. Instructions: OMNI 300 INJ 75 MLS OMNI 240 30 MLS / History: TECHNIQUE: Multi-detector row CT images were acquired from the lung bases through the abdomen and pelvis with the use of IV contrast. Sagittal and coronal images were acquired from the transaxial data. All CT scans performed at this facility utilize dose optimization techniques as appropriate to the exam, including the following: Automated exposure control and adjustment of the mA and/or KV according to patient size (this includes techniques or standardized protocols for targeted exams where dose is indication/reason for exam). IV CONTRAST: Administered ORAL CONTRAST: Administered COMPARISON: Abdomen pelvis CT with IV contrast 05/25/2019 FINDINGS: LOWER CHEST: Small hiatal hernia LIVER: Unremarkable BILIARY SYSTEM: Gallbladder is unremarkable. Bile ducts are not dilated. PANCREAS: Unremarkable SPLEEN: Unremarkable ADRENALS: Unremarkable KIDNEYS & URETERS: Unremarkable BLADDER: Unremarkable REPRODUCTIVE ORGANS: Unremarkable GASTROINTESTINAL: Stomach is unremarkable besides a small hiatal hernia. Small bowel is only partially opacified by enteric contrast. In the mid upper abdomen, an opacified small bowel loop is narrowed and appears to continue across the mesentery into unopacified small bowel loops, some of which more distally are mildly distended . The terminal ileum is normal in caliber. The large bowel shows diffuse spasm. There are scattered colonic diverticuli most conspicuous at the ascending colon and cecum. MESENTERY/PERITONEUM/RETROPERITONEUM: Unremarkable VASCULAR: Unremarkable LYMPH NODES: No adenopathy OSSEOUS & SOFT TISSUES: Unremarkable IMPRESSION: 1. Findings suggest a small bowel obstruction. Given the distention of nonopacified small bowel loops and collapse of more distal small bowel loops, closed loop obstruction physiology is difficult to exclude. No mesenteric edema or other secondary findings suspicious for bowel ischemia. 2. Incidental ascending colonic diverticulosis without CT findings of acute diverticulitis, and diffuse colonic spasm without overt signs of colitis. Discussed with Dr. Bernie Urbina by telephone at 10:54 AM on 04/27/2020 Electronically signed by: Antonia Wood MD (04/27/2020 10:56 AM) [id number] DICTATED and SIGNED BY: ANTONIA WOOD MD DATE: 04/27/20 1056 VTE Prophylaxis Ordered VTE Prophylaxis Devices: Yes VTE Pharmacological Prophylaxi: Yes Assessment/Plan Assessment/Plan IMPRESSION 1. ACUTE small bowel obstruction. with distention of nonopacified small bowel loops and collapse of more distal small bowel loops, closed loop obstruction physiology is difficult to exclude. No mesenteric edema or other secondary findings suspicious for bowel ischemia. 2. Incidental ascending colonic diverticulosis without CT findings of acute diverticulitis, and diffuse colonic spasm without overt signs of colitis. 3. thc abuse PLAN ADMIT Consult gen surgery npo iv fluid support GI CONSULT DVT PROPHYLAXIS GI PROPHYLAXIS Justicifation of Admission Dx: Justifications for Admission: Justification of Admission Dx: Yes CASSIDY BATRES MD Apr 27, 2020 12:07
[2020-04-27] MEDS: IPRATRPIUM/ALBUTEROL 0.5/2.5MG 3 ML NEBU. NEB SCH ×2 (12:15→16:00)
[2020-04-27] MEDS ORDERED: MAG HYDROX/ALUMINUM HYD/SIMETH 30 ML ORAL.SUSP PO PRN (12:15)
[2020-04-27] MEDS ORDERED: DOCUSATE SODIUM 100 MG CAPSULE. PO PRN (12:15)
[2020-04-27] MEDS ORDERED: guaiFENesin ORAL 200 MG/10 ML LIQUID. PO PRN (12:15)
[2020-04-27] MEDS ORDERED: IV NORMAL SALINE 1000ML BAG 1,000 ML IV SCH (12:15)
[2020-04-27] MEDS ORDERED: SODIUM PHOSPHATES 19/7GM 133 ML ENEMA. PR PRN (12:15)
[2020-04-27] MEDS ORDERED: ACETAMINOPHEN 325 MG TABLET. PO PRN (12:15)
[2020-04-27] MEDS ORDERED: 0.9 % SODIUM CHLORIDE 10 ML DISP.SYRIN. IV PRN (12:15)
[2020-04-27] MEDS ORDERED: ACETAMINOPHEN 650 MG SUPP.RECT. PR PRN (12:15)
[2020-04-27] MEDS ORDERED: LORazepam 0.5 MG TABLET PO PRN (12:15)
[2020-04-27] MEDS ORDERED: ONDANSETRON PF 4 MG/2 ML VIAL. IV PRN (12:15)
[2020-04-27] MEDS ORDERED: PANTOPRAZOLE IV PUSH 40 MG VIAL. IVP SCH (12:15)
[2020-04-27] MEDS ORDERED: cloNIDine HCL 0.1 MG TABLET PO PRN (12:15)
[2020-04-27] MEDS ORDERED: ENOXAPARIN 40 MG/0.4 ML SYRINGE. SQ SCH (13:00)
--- NOTE | 2020-04-27 13:09 | RAD ---
Single view of the abdomen 04/27/2020 INDICATION: NG tube placement COMPARISON STUDY: Abdominal radiograph earlier today. There is an enteric tube with tip in the stomach. Radiodense contrast is seen throughout the large bowel. The overall bowel gas pattern appears grossly nonobstructive. IMPRESSION: Enteric tube with tip in the stomach Electronically signed by: Santos Song MD (04/27/2020 1:06 PM) [id number]
--- NOTE | 2020-04-27 14:40 | PDOC2 ---
GI CONSULT Date of Service: DATE: 04/27/20 TIME: 14:30 Reason For Consult: partial SBO HPI: HPI: 35 y/o male seen in ER. Onset of mid abdominal pain with "clear" emesis yesterday, possibly precipitated by drinking alcohol (not even one drink) or after eating reheated barbeque. Similar symptoms a month ago, was told he had a hernia. Was seen in the ER here for vomiting and abd pain in 10/2019 - left AMA. H/o GERD - tried famotidine for awhile after an ER visit but "quit taking it." H/o constipation - has abdominal pain w/ straining every day, never any treatment. Last stool was this morning - small but pretty normal for him. No dysphagia, chronic n/v, hematemesis, diarrhea, hematochezia, melena, change in appetite, or weight loss. No previous EGD or colonoscopy. CT notes diverticulosis. No GB, liver, pancreas, or PUD history. No routine use of NSAIDs. PMH: PMH: asthma, GERD, constipation FH: Family History: No pertinent hx (denies GI cancers, IBD) Social History: Smoke: <1 pack per day ALCOHOL: occassional Drugs: Marijuana (+tox screen in the past) ROS: GEN: Denies fevers, chills, sweats HEENT: Denies blurred vision, sore throat CV: Denies chest pain RESP: Denies shortness of air, cough GI: Per HPI : Denies hematuria, dysuria ENDO: Denies weight changes NEURO: Denies confusion, dizziness MSK: Denies weakness, joint pain/swelling SKIN: Denies jaundice, pruritus Vitals: Vitals: Vital Signs Date Time Temp Pulse Resp B/P (MAP) Pulse Ox O2 Delivery O2 Flow Rate FiO2 04/27/20 12:31 24 98 04/27/20 11:12 Room Air 04/27/20 10:34 46 169/97 (121) 04/27/20 08:37 98.3 98.3 Labs: Labs: Laboratory Tests Test 04/27/20 08:37 04/27/20 09:03 04/27/20 12:51 Urine Collection Type Void Urine Color Marylu Urine Clarity Cloudy Urine pH 6.5 (<5.0-8.0) Urine Specific Hewett >=1.030 (1.000-1.030) Urine Protein 30 mg/dL (NEG-TRACE) Urine Glucose (UA) Negative mg/dL (NEG) Urine Ketones (Stick) 40 mg/dL (NEG) Urine Blood Negative (NEG) Urine Nitrite Negative (NEG) Urine Bilirubin Small (NEG) Urine Urobilinogen Dipstick 0.2 mg/dL (0.2 mg/dL) Urine Leukocyte Esterase Small (NEG) Urine RBC 0 /HPF (0-2) Urine WBC 11-20 /HPF (0-4) Urine Bacteria Few /HPF (0-FEW) Urine Mucus Marked /LPF White Blood Count 8.4 x10^3/uL (4.0-11.0) Red Blood Count 5.70 x10^6/uL (4.30-5.70) Hemoglobin 13.9 g/dL (13.0-17.5) Hematocrit 42.0 % (39.0-53.0) Mean Corpuscular Volume 74 fL (79-100) Mean Corpuscular Hemoglobin 24 pg (25-35) Mean Corpuscular Hemoglobin Concent 33 g/dL (31-37) Red Cell Distribution Width 14.5 % (11.5-14.5) Platelet Count 309 x10^3/uL (140-400) Neutrophils (%) (Auto) 75 % (31-73) Lymphocytes (%) (Auto) 17 % (24-48) Monocytes (%) (Auto) 8 % (0-9) Eosinophils (%) (Auto) 0 % (0-3) Basophils (%) (Auto) 1 % (0-3) Neutrophils # (Auto) 6.3 x10^3/uL (1.8-7.7) Lymphocytes # (Auto) 1.4 x10^3/uL (1.0-4.8) Monocytes # (Auto) 0.6 x10^3/uL (0.0-1.1) Eosinophils # (Auto) 0.0 x10^3/uL (0.0-0.7) Basophils # (Auto) 0.1 x10^3/uL (0.0-0.2) Sodium Level 138 mmol/L (136-145) Potassium Level 3.5 mmol/L (3.5-5.1) Chloride Level 99 mmol/L (98-107) Carbon Dioxide Level 25 mmol/L (21-32) Anion Gap 14 (6-14) Blood Urea Nitrogen 22 mg/dL (8-26) Creatinine 1.0 mg/dL (0.7-1.3) Estimated GFR (Cockcroft-Gault) 103.5 BUN/Creatinine Ratio 22 (6-20) Glucose Level 128 mg/dL (70-99) Calcium Level 9.3 mg/dL (8.5-10.1) Total Bilirubin 1.4 mg/dL (0.2-1.0) Aspartate Amino Transf (AST/SGOT) 19 U/L (15-37) Alanine Aminotransferase (ALT/SGPT) 46 U/L (16-63) Alkaline Phosphatase 92 U/L (46-116) Total Protein 8.1 g/dL (6.4-8.2) Albumin 4.1 g/dL (3.4-5.0) Albumin/Globulin Ratio 1.0 (1.0-1.7) Lipase 76 U/L (73-393) Lactic Acid Level 1.1 mmol/L (0.4-2.0) Allergies: Coded Allergies: No Known Drug Allergies (Unverified , 05/25/19) Medications: Current Medications Medications (Trade) Dose Ordered Sig/Haylie Route PRN Reason Start Time Stop Time Status Last Admin Dose Admin Ondansetron HCl (Zofran) 4 mg 1X ONCE IVP 04/27/20 09:15 04/27/20 09:16 DC 04/27/20 09:29 Iohexol (Omnipaque 240 Mg/ml) 30 ml 1X ONCE PO 04/27/20 09:15 04/27/20 09:16 DC 04/27/20 09:15 Iohexol (Omnipaque 300 Mg/ml) 75 ml 1X ONCE IV 04/27/20 09:15 04/27/20 09:16 DC 04/27/20 09:15 Sodium Chloride 1,000 ml @ 1,000 mls/hr 1X ONCE IV 04/27/20 10:15 04/27/20 11:14 DC 04/27/20 10:52 Ondansetron HCl (Zofran) 4 mg 1X ONCE IVP 04/27/20 10:15 04/27/20 10:18 DC 04/27/20 09:45 Famotidine (Pepcid Vial) 20 mg 1X ONCE IVP 04/27/20 10:45 04/27/20 10:46 DC 04/27/20 10:51 Morphine Sulfate (Morphine Sulfate) 8 mg 1X ONCE IV 04/27/20 11:00 04/27/20 11:02 DC 04/27/20 11:12 Lidocaine HCl (Viscous Lidocaine) 15 ml 1X ONCE MM 04/27/20 11:00 04/27/20 11:02 DC 04/27/20 11:11 Morphine Sulfate (Morphine Sulfate) 4 mg 1X ONCE IV 04/27/20 12:15 04/27/20 12:16 DC 04/27/20 12:31 Pantoprazole Sodium (PROTONIX VIAL for IV PUSH) 40 mg DAILY08 IVP 04/27/20 12:15 04/27/20 12:31 Sodium Chloride 1,000 ml @ 100 mls/hr Q10H IV 04/27/20 12:15 04/27/20 13:20 Imaging: Imaging: KUB IMPRESSION: Enteric tube with tip in the stomach CT A/P IMPRESSION: 1. Findings suggest a small bowel obstruction. Given the distention of nonopacified small bowel loops and collapse of more distal small bowel loops, closed loop obstruction physiology is difficult to exclude. No mesenteric edema or other secondary findings suspicious for bowel ischemia. 2. Incidental ascending colonic diverticulosis without CT findings of acute diverticulitis, and diffuse colonic spasm without overt signs of colitis. PE: GEN: NAD, Simran present HEENT: Atraumatic, PERRL LUNGS: CTAB HEART: RRR ABD: quiet BS, periumbilical discomfort, NG w/ clear liquid EXTREMITY: No edema SKIN: No rashes, no jaundice NEURO/PSYCH: A & O 3, somewhat agitated A/P: A/P: Abd pain, vomiting Microcytosis ?SBO GERD - quit taking H2 lilia CRC screen - average risk H/o constipation Diverticulosis -- NG per surgery, consider SBFT. Check iron profile w/ microcytosis. Agree w/ IV PPI for h/o GERD. Change to PO as able. Add Miralax, etc. for chronic constipation when taking PO. RAMIN LIZ Apr 27, 2020 14:40
[2020-04-27 15:30] VITALS: BP 135/77
[2020-04-27] MEDS ORDERED: MORPHINE SULFATE 4 MG/ML VIAL. IV PRN (16:30)
--- NOTE | 2020-04-27 19:00 | NUR ---
Pt's at bedside, pt asking if he can go smoke. Pt. also extremely anxious stating he wants to leave. Pt. initially asking if can stay the night. Pt and verbalized understanding of current polcies and procedures. Pt. stated he wanted to leave AMA. NG d/c'd, pt and walked out with TUNA Oliveira. Dr. Llamas notified per [facility]
== END 2020-04-27 19:00 | disposition left against medical advice (07) ==
LOC: ER 08:30 → 4 NORTH 12:22 → ED HOLD 12:22 → 4 NORTH 15:32
PROVIDERS: ADMIT Family Medicine; ATTEND Family Medicine
DX: K56.600 Partial intestinal obstruction, unspecified as to cause (principal); F12.10 Cannabis abuse, uncomplicated; J45.909 Unspecified asthma, uncomplicated; F17.210 Nicotine dependence, cigarettes, uncomplicated; R11.2 Nausea with vomiting, unspecified
CPT/HCPCS: 36415; 74018; 74177; 80053; 81001; 83540; 83550; 83605; 83690; 85025; 96361; 96374; 96375; 96376; 99285; C9113; G0378; J2270; J2405; J3490; J7030; Q9966; Q9967; G0379

== ENCOUNTER 2020-12-12 14:50 | Emergency (ER) | payer MEDICARE ==
[~2020-12-12] VITALS: Ht 170.2 cm; Wt 100.0 kg
[2020-12-12 15:44] VITALS: BP 151/90
== END 2020-12-12 16:37 | disposition left against medical advice (07) ==
LOC: ER 14:50
DX: K21.9 Gastro-esophageal reflux disease without esophagitis (principal); Z53.21 Procedure and treatment not carried out due to patient leaving prior to being seen by health care provider